=== PATIENT | male | born 1975 | race Caucasian/White ===

== ENCOUNTER → 2020-09-19 | Outpatient (CLI) | payer BC | LOC: SJCVCIMAG 08:53 | PROVIDERS: ATTEND Internal Medicine | DX: I34.0 Nonrheumatic mitral (valve) insufficiency (principal); I48.91 Unspecified atrial fibrillation ==

== ENCOUNTER → 2020-10-16 | Outpatient (CLI) | payer BC ==
[2020-10-16 09:33] LABS: ABSOLUTE NEUTROPHILS 4.2 thou/uL (1.4-8.2); BASOPHILS 1.2 % (0.0-2.0); HEMATOCRIT 52.5 % (42.0-52.0); HEMOGLOBIN 18.3 gm/dL (14.0-18.0); LYMPHOCYTES 29.6 % (24.0-44.0); MCH 31.4 pg (26.0-34.0); MCHC 34.8 g/dL (28.0-37.0); MCV 90.3 fL (80.0-100.0); PLATELET COUNT 558 thou/uL (150-400); POLYS 58.2 % (36.0-66.0); RBC 5.82 mil/uL (4.50-6.00); RDW 14.3 % (10.5-14.5); WBC 7.2 thou/uL (4.0-11.0)
[2020-10-16 09:50] LABS: CALCIUM 8.5 mg/dL (8.5-10.1); CREATININE 1.2 mg/dL (0.7-1.3); POTASSIUM 4.5 mmol/L (3.5-5.1); TOTAL BILIRUBIN 0.9 mg/dL (0.2-1.0); TOTAL PROTEIN 7.3 g/dL (6.4-8.2)
== END ==
LOC: CAT 09:01
PROVIDERS: ATTEND Internal Medicine Cardiovascular Disease
DX: Z01.818 Encounter for other preprocedural examination (principal); I25.10 Atherosclerotic heart disease of native coronary artery without angina pectoris; R91.1 Solitary pulmonary nodule; I48.0 Paroxysmal atrial fibrillation

== ENCOUNTER → 2020-10-18 | Outpatient (CLI) | payer BC | END | disposition home or self-care (01) | LOC: CATH | PROVIDERS: ATTEND Internal Medicine Cardiovascular Disease | DX: I48.91 Unspecified atrial fibrillation (principal); Z53.8 Procedure and treatment not carried out for other reasons; Z20.822 Contact with and (suspected) exposure to COVID-19; Z79.01 Long term (current) use of anticoagulants ==

== ENCOUNTER 2020-11-07 06:35 | Observation (INO) | payer BC ==
[~2020-11-07] VITALS: Ht 195.6 cm; Wt 120.2 kg
[2020-11-07] VITALS (9 sets, daily range): BP systolic 101–122; BP diastolic 67–86
--- NOTE | ~2020-11-07 | P ---
[facility] [place] [address] PROCEDURE REPORT Name: TIANNA BARLOW Room #: 200-I [facility] Gemma Herbert#: [id number] Admission: 11/07/20 Attend Phys: Keshawn Moncada MD Discharge: 11/08/20 Date of : 73 Report #: [id number] THIS REPORT FOR: cc: FAM - No family physician/PCP FAM - No family physician/PCP Keshawn Moncada MD ~ DATE OF SERVICE: 11/07/2020 PREOPERATIVE DIAGNOSIS: Atrial fibrillation. PROCEDURES PERFORMED: 1. AFib ablation, CPT code 50278. 2. Program stimulation pacing after IV drug infusion, CPT code 63767. 3. 3D mapping, CPT code 80553. 4. Intracardiac echo, CPT code 78089. 5. Focal ablation, CPT code 12173. DESCRIPTION OF PROCEDURE: The patient was brought to the EP laboratory in a fasting and sedated state, prepped and draped in a sterile fashion. Sheath were positioned into right femoral vein. Using a modified Seldinger technique, I placed an 8, 9, and 7-Moldovan short sheath. I also obtained an arterial access and placed a right femoral 8-Moldovan arterial sheath. Next, decapolar catheter was placed in the coronary sinus. ICE catheter was placed in the left right atrium. The patient appeared to have 2 left and 2 right pulmonary veins. This was merged with the patient's cardiac CT scan. The patient was systemically heparinized and a transseptal was performed using an SL1 sheath and a [place] needle. This was successful and straightforward. The Cryo sheath was exchanged and the Lasso was placed in the left atrium. A left voltage map of the left atrium was created. Next, I started by isolating the pulmonary veins. The left superior pulmonary vein underwent two 4-minute freezes and isolated during the second freeze of 30 seconds. The left inferior pulmonary vein underwent a 4-minute followed by a 3-minute freeze. The vein isolated at 38 seconds during the first freeze. The right superior pulmonary vein underwent a 120-second freeze and isolated at 15 seconds, but I came off early because the temperature was getting cooled. I did an additional 120-second freeze. The right inferior pulmonary vein underwent a 4-minute freeze followed by 3-minute freeze. The vein isolated during the first freeze at 104 seconds. There was never any phrenic nerve compromise during the right-sided vein isolation. 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 Therefore, I decided to perform a posterior roof line. I performed 4 freezes and confirmed the left superior pulmonary veins. Post ablation, there was now isolation of all pulmonary veins and the posterior roof was also electrically quiet. At this point, the patient underwent 200-joules synchronized cardioversion and the patient was in sinus rhythm. Then, an EP study was performed and AV block was noted at 300 milliseconds. Atrial ERP was noted at 190 milliseconds at a [address] [facility] [address] [place] [address] PROCEDURE REPORT Name: TIANNA BARLOW Room #: 200-I CARLENE Herbert#: [id number] Admission: 11/07/20 Attend Phys: Keshawn Moncada MD Discharge: 11/08/20 Date of : 73 Report #: [id number] millisecond basic drive cycle length. Isoproterenol infusion was initiated at 2 mcg per minute and AV block was noted at 260 milliseconds. Atrial ERP was noted at 200 milliseconds at a [address] cycle length. There was no induction of SVT, atrial flutter, nor atrial fibrillation. Using intracardiac ultrasound, I verified there was no pericardial effusion. The patient then received systemic protamine and all catheters and sheaths were pulled and hemostasis was obtained. CONCLUSIONS: 1. Successful AFib ablation with successful isolation of the pulmonary veins. 2. Successful posterior wall isolation. By: [id number] [id number] Keshawn Moncada MD /nt
[2020-11-07] MEDS ORDERED: MULTI FOR HIM1 EACH PO (07:34)
[2020-11-07] MEDS ORDERED: TOPROL XL50 MG PO (07:34)
[2020-11-07] MEDS ORDERED: PRADAXA150 MG PO (07:34)
[2020-11-07 07:46] LABS: HEMATOCRIT 52.2 % (42.0-52.0); HEMOGLOBIN 17.6 gm/dL (14.0-18.0); MCH 30.2 pg (26.0-34.0); MCHC 33.7 g/dL (28.0-37.0); MCV 89.5 fL (80.0-100.0); RBC 5.83 mil/uL (4.50-6.00); RDW 14.8 % (10.5-14.5); WBC 6.2 thou/uL (4.0-11.0)
[2020-11-07 07:53] LABS: CALCIUM 8.5 mg/dL (8.5-10.1); CREATININE 1.2 mg/dL (0.7-1.3); POTASSIUM 4.1 mmol/L (3.5-5.1)
[2020-11-07 07:59] LABS: ALBUMIN 3.9 g/dL (3.4-5.0); TOTAL BILIRUBIN 0.9 mg/dL (0.2-1.0)
[2020-11-07 08:15] LABS: APTT 29.6 Seconds (24.5-32.8); INR 1.01
--- NOTE | 2020-11-07 14:41 | NUR ---
PATIENT IN ROOM 200 FROM RECOVERY THIS AFTERNOON, ALERT AND ORIENTED. C/O OF PAIN IN HIS LOWER BACK AND REPOSITIONED WITH PILLOW. RT GROIN SITE WITH DRESSING SATURATED BUT INTACT AND NO ACTIVE OOZING NOTED. PATIENT INSTRUCTED TO IMMOBILIZE LEG AND TO HOLD PRESSURE WHILE SNEEZING OR COUGHING. PATIENT COMMUNICATES UNDERSTANDING. PULSES INTACT. CONTACTED [facility] RE: ORDERS, STATED THAT DR. MARTINES USUALLY PLACES HIS ORDERS IN [facility]. WILL F/U AFTER A WHILE. PATIENT PROVIDED WITH ICE WATER AND URINAL.
[2020-11-07] MEDS ORDERED: XARELTO20 MG PO (16:41)
[2020-11-07] MEDS ORDERED: TAMBOCOR 100 M100 M1 PO (16:41)
--- NOTE | 2020-11-07 18:17 | NUR ---
OFF BEDREST AT 1805, DRESSING ON RT GROIN CHANGED. PATIENT ALLOWED TO SIT UP AND EAT, PULSES INTACT AND VITALS STABLE. PATIENT ADVICED TO TAKE IT EASY WITH MOVEMENT AND TO CALL IN CASE HE NOTICES ANY BLEEDING OR INCREASED PAIN AT THE PUNCTURE SITE.
[2020-11-08 05:04] VITALS: BP 127/76
--- NOTE | 2020-11-08 05:59 | NUR ---
PATIENTS CARES WERE ASSUMED AT SHIFT CHANGE. PATIENT WAS ASSESED AND MEDS WERE PASSED. PATIENT DID STATE THAT HE IS READY TO GO HOME. PATIENT IS UP AND INDEPENDENT IN HIS ROOM. ROUNDS WERE DONE. THE BED ALARM IS OFF DUE TO PATIENT IS UP AND ABOUT IN HIS ROOM. THE BED IS IN A LOW AND LOCKED POSITION
[2020-11-08 07:12] VITALS: BP 119/74
[2020-11-08 10:52] VITALS: BP 114/74
[2020-11-08 11:02] VITALS: BP 138/97
--- NOTE | 2020-11-08 11:54 | NUR ---
RCEIEVED THE PATIENT CONSCIOUS AND ORIENTED.ON ROOM AIR BREATHING SPONTANEOUSLY.NOT IN PAIN OR DISTRESS.ALL NEEDS ATTENDED.DISCHARGE PACKET GIVEN AND EVERYTHING WAS EXPLAINED TO THE PATIENT.DISCHARGED PATIEN TON STABLE CONDITION.
== END 2020-11-08 11:50 | disposition home or self-care (01) ==
LOC: CATH 06:35 → 2N 14:30
PROVIDERS: ADMIT Internal Medicine Cardiovascular Disease; ATTEND Internal Medicine Cardiovascular Disease
DX: I48.0 Paroxysmal atrial fibrillation (principal); E78.5 Hyperlipidemia, unspecified; Z20.822 Contact with and (suspected) exposure to COVID-19; Z86.19 Personal history of other infectious and parasitic diseases; Z79.82 Long term (current) use of aspirin; Z79.899 Other long term (current) drug therapy
CPT/HCPCS: 62110; 62900; 65020; 70005

== ENCOUNTER 2020-11-08 21:43 | Inpatient (IN) | payer BC ==
[~2020-11-08] VITALS: Ht 195.6 cm; Wt 103.0 kg
[~2020-11-08 21:43] MED LIST: MULTI FOR HIM1 EACH PO; PRADAXA150 MG PO; TAMBOCOR 100 M100 M1 PO; TOPROL XL50 MG PO; XARELTO20 MG PO
[2020-11-08 21:45] VITALS: BP 129/78
[2020-11-08 22:50] LABS: ABSOLUTE NEUTROPHILS 8.6 thou/uL (1.4-8.2); BASOPHILS 0.4 % (0.0-2.0); EOSINOPHILS 1.1 % (0.0-3.0); HEMATOCRIT 46.3 % (42.0-52.0); LYMPHOCYTES 16.2 % (24.0-44.0); MCH 30.5 pg (26.0-34.0); MCHC 33.2 g/dL (28.0-37.0); MCV 91.7 fL (80.0-100.0); MONOCYTES 6.4 % (1.0-8.0); PLATELET COUNT 525 thou/uL (150-400); POLYS 75.9 % (36.0-66.0); RBC 5.05 mil/uL (4.50-6.00); RDW 14.9 % (10.5-14.5); WBC 11.4 thou/uL (4.0-11.0)
[2020-11-08 22:55] LABS: CALCIUM 8.5 mg/dL (8.5-10.1); CREATININE 1.2 mg/dL (0.7-1.3); POTASSIUM 3.8 mmol/L (3.5-5.1)
[2020-11-08 22:59] LABS: HEMOGLOBIN 15.4 gm/dL (14.0-18.0)
[2020-11-08 23:11] LABS: TROPONIN-I 4.18 ng/mL (<0.06)
[2020-11-08 23:50] LABS: URINE BILIRUBIN NEGATIVE (Negative); URINE BLOOD NEGATIVE (Negative); URINE CLARITY CLEAR; URINE COLOR YELLOW; URINE GLUCOSE-RANDOM* NEGATIVE (Negative); URINE KETONES NEGATIVE (Negative); URINE LEUKOCYTES-REFLEX NEGATIVE (Negative); URINE NITRITE-REFLEX NEGATIVE (Negative); URINE PROTEIN (DIPSTICK) NEGATIVE (Negative); URINE UROBILINOGEN 0.2 E.U./dl (0.2-1.0)
[2020-11-09] VITALS (9 sets, daily range): BP systolic 108–138; BP diastolic 60–81
--- NOTE | 2020-11-09 05:14 | NUR ---
Admission history and assesments completed. Care plan initiated. IVFluids and antibiotics given. Flu swab collected and sent. Ups adlib with out difficulty. SHort of breath with activity, oxygen at 2L/NC sats mid 90's.
--- NOTE | 2020-11-09 07:11 | EKG ---
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 : 1975 Requested By: Justo Pitts Order Number: [id number] MD: Maxime Ramirez Measurements Intervals [place] Rate: 106 P: 54 [place]: 185 QRS: 42 QRSD: 105 T: 24 QT: 322 QTc: 428 Interpretive Statements Sinus tachycardia Left atrial enlargement Borderline low voltage, extremity leads No previous ECG available for comparison Electronically Signed On 11-09-2020 7:11:17 CDT by Maxime Ramirez [email or web address] <ELECTRONICALLY SIGNED> By: Maxime Ramirez MD, [facility] 11/09/20 0711 2207 06 Maxime Ramirez MD, FACC /EPI
--- NOTE | 2020-11-09 12:08 | 2DMMODE ---
[facility] [place] [address] 2 D/M-MODE ECHOCARDIOGRAM Name: TIANNA BARLOW Room #: 355-P ADM IN M.R.#: [id number] Admission: 11/09/20 Attend Phys: Marcell Mason MD Discharge: Date of : 73 Report #: [id number] THIS REPORT FOR: cc: MARIAH - Sindy family physician/PCP MARIAH - Sindy family physician/PCP Maxime Ramirez MD [facility] ~ ADDENDUM APPROVED REPORT Study performed: 11/09/2020 09:38:45 EXAM: Comprehensive 2D, Doppler, and color-flow Echocardiogram Patient Location: Bedside Room #: 355 Status: routine BSA: 2.36 HR: 89 bpm BP: 138/80 mmHg Rhythm: NSR 2D Dimensions RVDd: 45.91 mm IVSd: 9.30 (7-11mm) LVOT Diam: 21.86 (18-24mm) LVDd: 52.54 mm PWd: 10.69 (7-11mm) Ascending Ao: 37.93 (22-36mm) LVDs: 38.80 (25-40mm) Aortic Root: 32.30 mm IVC: 29.00 mm Volumes Left Atrial Volume (Systole) Single Plane 4CH: 92.52 mL Single Plane 2CH: 95.16 mL LA ESV Index: 48.00 mL/m2 Aortic Valve AoV Peak Ayden.: 0.88 m/s AO Peak Gr.: 3.11 mmHg LVOT Max P.23 mmHg LVOT Max V: 0.90 m/s MICHAEL Vmax: 3.82 cm2 Mitral Valve E/A Ratio: 1.7 MV Decel. Time: 132.32 ms MV E Max Ayden.: 0.86 m/s MV A Ayden.: 0.51 m/s MV PHT: 38.[address] [facility] [place] [address] 2 D/M-MODE ECHOCARDIOGRAM Name: TIANNA BARLOW Room #: 355-P [facility] IN M.R.#: [id number] Admission: 11/09/20 Attend Phys: Marcell Mason MD Discharge: Date of : 73 Report #: [id number] IVRT: 57.67 ms Pulmonary Valve PV Peak Ayden.: 0.71 m/s PV Peak Gr.: 2.03 mmHg Pulmonary Vein P Vein S: 0.56 m/s P Vein D: 0.22 m/s P Vein S/D Ratio: 2.55 Tricuspid Valve TR Peak Ayden.: 1.91 m/s RAP Estimate: 15.00 mmHg TR Peak Gr.: 14.52 mmHg PA Pressure: 30.00 mmHg Left Ventricle The left ventricle is normal size. There is normal left ventricular wall thickness. The left ventricular systolic function is normal. The left ventricular ejection fraction is within the normal range. LVEF is 55%. The left ventricular diastolic function is normal. Right Ventricle Right ventricle is at the upper limits of normal. The right ventricular systolic function is normal. Atria Left atrium is dilated. Right atrium is dilated. Aortic Valve The aortic valve is normal in structure. No aortic regurgitation is present. There is no aortic valvular stenosis. Mitral Valve Mitral valve leaflets are mildly thickened. Mild mitral regurgitation. No evidence of mitral valve stenosis. Tricuspid Valve The tricuspid valve is normal in structure. Trace to mild tricuspid regurgitation. PAP is estimated at 30 mmHg. Pulmonic Valve The pulmonary valve is normal in structure. Mild pulmonic regurgitation. Great Vessels The aortic root is normal in size. IVC is dilated and collapses [facility] [address] [place] [address] 2 D/M-MODE ECHOCARDIOGRAM Name: TIANNA BARLOW Room #: 355-P [facility] IN .R.#: [id number] Admission: 11/09/20 Attend Phys: Marcell Mason MD Discharge: Date of : 73 Report #: [id number] <50% with inspiration. Pericardium There is no pericardial effusion. <Conclusion> Normal left ventricular size/wall thickness Ejection fraction 55% Right ventricle size upper limits of normal, normal systolic function Mild biatrial enlargement Color-flow Doppler study was performed of the aortic/mitral/tricuspid/pulmonary valve Normal aortic valve structure and function Mild mitral valve insufficiency Mild tricuspid valve insufficiency Pulmonary systolic pressure estimated at 30 mmHg No pericardial effusion Normal aortic root size <ELECTRONICALLY SIGNED> By: Maxime Ramirez MD, FAC 11/09/201206 06 06 Maxime Ramirez MD, FAC /INF
--- NOTE | 2020-11-09 15:01 | NUR ---
INITIAL ASSESSMENT: Received consult. Pt was admitted from home due to sepsis. Pt was recently discharged home on 11/08 following ablation. Pt is currently on 2L of O2 and IV abx. Discharge home is anticipated for tomorrow. SW spoke with pt. Introduced role of SW. Pt is alert/orientated x 4. Pt lives at home. Prior to admission, pt was independent with ADLs. No use of DME. No hx of HH services or post-acute placement. Pt states he does not need O2. Pt does not currently have a PCP. Pt agreeable with info regarding primary care providers at [facility]. Info placed in pt's discharge summary. [facility] provider info also placed on pt's chart. No discharge needs identified at this time. SW is available to assist should needs arise.
[2020-11-10 03:18] VITALS: BP 124/82
--- NOTE | 2020-11-10 06:07 | NUR ---
PT MAKING POOR PROGRESS TOWARDS GOALS. ON ROOM AIR THROUGHOUT THE NIGHT. NOTED LUNGS DIMINISHED THROUGOUT UPON INTIAL ASSESSMENT. THIS AM, LUNGS DIMINISHED ON THE RIGHT, LEFT UPPER LOBE AND COARSE IN LEFT LOWER LOBE. CONTINUE TO MONITOR.
[2020-11-10 07:37] VITALS: BP 124/90
[2020-11-10] MEDS ORDERED: CEFUROXIME500 MG PO (09:28)
[2020-11-10 10:02] VITALS: BP 122/78
[2020-11-10 10:44] VITALS: BP 122/78
[2020-11-10 10:54] VITALS: BP 122/78
[2020-11-10 10:55] VITALS: BP 122/78
--- NOTE | 2020-11-10 11:58 | NUR ---
PT DISCHARGED TO HOME WITH SIG OTHER...WILL FOLLOW UP 7-10 DAYS CARDIOLOGY...GIVEN INFO TO CHOSE PCP...
== END 2020-11-10 12:09 | disposition home or self-care (01) | DRG 193 ==
LOC: ER 21:43 → EROBS 11-09 00:24 → 3W 11-09 00:24
PROVIDERS: Emergency Medicine; Nurse Practitioner; ADMIT Hospitalist; ATTEND Hospitalist
DX: J18.9 Pneumonia, unspecified organism (principal); J96.01 Acute respiratory failure with hypoxia; E78.5 Hyperlipidemia, unspecified; I48.91 Unspecified atrial fibrillation; R77.8 Other specified abnormalities of plasma proteins; Z20.822 Contact with and (suspected) exposure to COVID-19; Z86.16 Personal history of COVID-19; Z79.899 Other long term (current) drug therapy; Z79.01 Long term (current) use of anticoagulants
CPT/HCPCS: 10879

== ENCOUNTER → 2021-03-21 | Outpatient (CLI) | payer BC ==
[~2021-03-21] MED LIST changes: +CEFUROXIME500 MG PO
== END ==
LOC: CAT 08:29
PROVIDERS: ATTEND Internal Medicine
DX: R91.1 Solitary pulmonary nodule (principal)